=== PATIENT | male | born 1990 | race African-American/Black ===

== ENCOUNTER 2017-11-29 18:58 | Emergency (ER) | payer MEDICAID ==
[~2017-11-29] VITALS: Ht 177.8 cm; Wt 68.0 kg
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
[2017-11-29] MEDS ORDERED: HYDROCODONE/APAP 5/325MG 1 EACH TABLET PO ONE (20:00)
[2017-11-29] MEDS ORDERED: HYDROCODONE/APAP 5/325MG 1 EACH TABLET ONE (20:24)
--- NOTE | 2017-11-29 21:01 | NUR ---
Patient discharged to home in stable condition. Written and verbal after care instructions given. Patient verbalizes understanding of instruction. VSS upon discharge
[2017-11-29 21:08] VITALS: BP 121/66
== END 2017-11-29 21:08 | disposition home or self-care (01) ==
LOC: ER 19:00
DX: M25.552 Pain in left hip (principal); M54.9 Dorsalgia, unspecified; R07.89 Other chest pain; V81 Occupant of railway train or railway vehicle injured in transport accident; Y93.89 Activity, other specified; Y92.89 Other specified places as the place of occurrence of the external cause; Y99.8 Other external cause status
CPT/HCPCS: 71046; A4606; Z7610

== ENCOUNTER 2018-12-29 00:41 | Emergency (ER) | payer MEDICAID, OTHER ==
[~2018-12-29] VITALS: Ht 190.5 cm; Wt 80.3 kg
[2018-12-29 01:02] VITALS: BP 108/59
--- NOTE | 2018-12-29 01:15 | NUR ---
KEIKO SANTANA AT BEDSIDE TO INGA MUNOZ.
[2018-12-29] MEDS ORDERED: LOPERAMIDE HCL (2 MG CAP) 2 MG CAPSULE PO ONE ×2 (01:30→01:36)
[2018-12-29] MEDS ORDERED: ONDANSETRON 4 MG TAB.RAPDIS SL ONE (01:30)
[2018-12-29] MEDS ORDERED: ONDANSETRON 4 MG TAB.RAPDIS ONE (01:36)
== END 2018-12-29 01:46 | disposition home or self-care (01) ==
LOC: ER 00:45
DX: R19.7 Diarrhea, unspecified (principal)
CPT/HCPCS: 99283; Q0162